=== PATIENT | male | born 1995 | race American Indian/Alaskan Native ===

== ENCOUNTER 2016-08-06 16:57 | Emergency (ER) | payer SELFPAY ==
--- NOTE | 2016-08-06 20:59 | Emergency Department Report ---
ED General Adult HPI - General Chief complaint: Anxiety Stated complaint: ANXIETY Time Seen by Provider: 08/06/16 20:48 Source: patient Mode of arrival: Ambulatory Limitations: No Limitations - History of Present Illness Initial comments: Patient comes into the ER today with complaints of having a single episode earlier today of feeling like his heart was going to stop on him and like she was going to fall out. Patient states that this only lasted for a few seconds and that he feels fine now. Patient denies any change in medications. Does state that he was cleaning this morning and drank some coffee which he usually does not do. Patient does state this has happened once or twice before but only lasts a few seconds at a time. Patient further notes that he does not eat a whole lot and he has not eaten anything at all today. Patient states that he just generally does not have much of an appetite. -: This morning - Related Data Allergies Allergy/AdvReac Type Severity Reaction Status Date / Time No Known Allergies Allergy Unverified 11/17/12 19:31 ED Review of Systems ROS: Stated complaint: ANXIETY Other details as noted in HPI Constitutional: denies: chills, fever Eyes: denies: eye pain, eye discharge, vision change ENT: denies: ear pain, throat pain Respiratory: denies: cough, shortness of breath, wheezing Cardiovascular: palpitations (sensation that his heart is slowing down). denies : chest pain Endocrine: no symptoms reported Gastrointestinal: denies: abdominal pain, nausea, diarrhea Genitourinary: denies: urgency, dysuria Musculoskeletal: denies: back pain, joint swelling, arthralgia Skin: denies: rash, lesions Neurological: denies: headache, weakness, paresthesias Psychiatric: denies: anxiety, depression Hematological/Lymphatic: denies: easy bleeding, easy bruising ED Past Medical Hx - Past Medical History Previous Medical History?: Yes Hx Psychiatric Treatment: Yes (depression/ anxiety) Hx Asthma: Yes - Surgical History Past Surgical History?: No - Social History Smoking Status: Never Smoker Substance Use Type: None ED Physical Exam - General Limitations: No Limitations General appearance: alert, in no apparent distress - Head Head exam: Present: atraumatic, normocephalic - Eye Eye exam: Present: normal appearance, PERRL, EOMI - ENT ENT exam: Present: normal exam, normal orophraynx, mucous membranes moist, TM's normal bilaterally, normal external ear exam - Neck Neck exam: Present: normal inspection, full ROM. Absent: tenderness, lymphadenopathy, thyromegaly - Respiratory Respiratory exam: Present: normal lung sounds bilaterally. Absent: respiratory distress, wheezes, rales, rhonchi, chest wall tenderness, accessory muscle use, decreased breath sounds - Cardiovascular Cardiovascular Exam: Present: regular rate, normal rhythm. Absent: systolic murmur, diastolic murmur, rubs, gallop - GI/Abdominal GI/Abdominal exam: Present: soft, normal bowel sounds. Absent: distended, tenderness, guarding - Rectal Rectal exam: Present: deferred - Extremities Exam Extremities exam: Present: normal inspection, full ROM, normal capillary refill. Absent: pedal edema, joint swelling, calf tenderness - Back Exam Back exam: Present: normal inspection, full ROM, tenderness. Absent: CVA tenderness (R), CVA tenderness (L) - Neurological Exam Neurological exam: Present: alert, oriented X3, CN II-XII intact, normal gait, motor sensory deficit. Absent: reflexes normal - Psychiatric Psychiatric exam: Present: normal affect, normal mood - Skin Skin exam: Present: warm, dry, intact, normal color. Absent: rash ED Course Vital Signs 08/06/16 17:00 Temperature 98.1 F Pulse Rate 74 Blood Pressure 129/80 O2 Sat by Pulse 99 Oximetry ED Medical Decision Making - Lab Data Lab Results 08/06/16 Range/Units 21:08 POC Glucose 98 (70-105) - EKG Data -: EKG Interpreted by Me EKG shows normal: sinus rhythm Rate: bradycardia (54) - EKG Data Interpretation: no acute changes - Medical Decision Making EKG obtained and reviewed with patient as well as Accu-Chek blood sugar level here. Tests look good however I suspect some of patient's symptoms may be coming from skipping meals. I have encouraged patient to eat something before every meal. Patient used to do a lot of running and I believe his heart runs low on a regular basis as a norm for him. I will refer patient to cardiology for further evaluation and potential heart monitor/event recorder. Patient is in agreement with treatment plan and patient is stable for discharge. Critical care attestation.: If time is entered above; I have spent that time in minutes in the direct care of this critically ill patient, excluding procedure time. ED Disposition Clinical Impression: Heart palpitations, Bradycardia Disposition: DISCHARGED TO HOME OR SELFCARE Is pt being admited?: No Does the pt Need Aspirin: No Condition: Stable Instructions: Palpitations (ED), Bradycardia (ED) Referrals: PRIMARY CAREMD [Primary Care Provider] - 3-5 Days AGNIESZKA VAN MD [Staff Physician] - 3-5 Days Time of Disposition: 22:20
[2016-08-06 22:28] VITALS: BP 142/86
== END 2016-08-06 22:28 | disposition home or self-care (01) ==
LOC: ED 16:57
DX: R00.2 Palpitations (principal); R00.1 Bradycardia, unspecified; F41.9 Anxiety disorder, unspecified; F32.9 Major depressive disorder, single episode, unspecified; J45.909 Unspecified asthma, uncomplicated
CPT/HCPCS: 82962; 93005; 93010; 99282; 99283